=== PATIENT | male | born 1960 | race Caucasian/White ===

== ENCOUNTER 2017-11-04 20:16 | Inpatient (IN) | payer MEDICARE, MEDICAID ==
[2017-11-04] MEDS ORDERED: Sodium Chloride 0.9% 1,000 ML IV STA (20:32)
[2017-11-04 21:34] LABS: BASO # 0.1 K/uL (0.0-0.2); EOS # 0.3 K/uL (0.0-0.7); EOS % 4.3 % (0.0-4.0); HEMOGLOBIN 6.7 g/dL (12.0-18.0); LYMPH # 1.3 K/uL (1.0-4.3); LYMPH % 19.1 % (20.0-40.0); MEAN CELL VOLUME 94.6 fl (80.0-94.0); MEAN CORPUSCULAR HEMOGLOBIN 31.1 pg (27.0-31.0); MEAN CORPUSCULAR HGB CONC 32.9 g/dL (33.0-37.0); MEAN PLATELET VOLUME 7.9 fl (7.2-11.7); MONO # 0.5 K/uL (0.0-0.8); MONO % 6.4 % (0.0-10.0); NEUT # 4.9 K/uL (1.8-7.0); NEUT % 69.2 % (50.0-75.0); NRBC % 0.2 % (0.0-0.0); RBC 2.16 Mil/uL (4.40-5.90); RED CELL DISTRIBUTION WIDTH 15.5 % (11.5-14.5); WHITE BLOOD COUNT 7.1 K/uL (4.8-10.8)
--- NOTE | 2017-11-04 21:46 | ED PDOC ---
HPI: General Adult Time Seen by Provider: 11/04/17 20:22 Chief Complaint (Nursing): Abnormal Labs Chief Complaint (Provider): Abnormal Labs History Per: EMS History/Exam Limitations: clinical condition Onset/Duration Of Symptoms: Mins (prior to arrival) Additional Complaint(s): 56 year old male with previous medical history of seizures, CHF, hypertension, AFib and schizophrenia, who presents to the emergency department via EMS from detention for an evaluation of low hemoglobin count seen on labs done prior to arrival. Patient is a poor historian due to multiple clinical condition but denied any shortness of breath, chest pain or dizziness. PMD: Dami Hanks MD Past Medical History Reviewed: Historical Data, Nursing Documentation, Vital Signs Vital Signs: Last Vital Signs Temp 97.9 F 11/04/17 20:28 Pulse 88 11/04/17 20:28 Resp 16 11/04/17 20:28 BP 113/76 11/04/17 20:28 Pulse Ox 99 11/04/17 22:31 - Medical History PMH: Anxiety, CHF, HTN, Chronic Kidney Disease, Schizophrenia, Seizures Denies: Diabetes, Hepatitis, HIV, Sexually Transmitted Disease - Family History Family History: States: Unknown Family Hx - Social History Current smoker - smoking cessation education provided: No Alcohol: None Drugs: Denies - Immunization History Hx Tetanus Toxoid Vaccination: No Hx Influenza Vaccination: Yes (07/25/2014) Hx Pneumococcal Vaccination: No - Home Medications Home Medications: Ambulatory Orders Medication Instructions Recorded ARIPiprazole [Abilify] 2 mg PO DAILY 06/25/15 LORazepam [Ativan] 0.5 mg PO DAILY 06/25/15 Latanoprost 0.005% Opht [XALATAN 1 drp BOTHEYES HS 06/25/15 2.5 Ml] Levetiracetam 1,000 mg PO HS 06/25/15 Spironolactone [Aldactone] 0.5 tab PO DAILY 06/25/15 Topiramate [Topamax] 3 tab PO BID 06/25/15 Acetaminophen [Non-Aspirin Pain 650 mg PO Q4 PRN 11/04/17 Relief] Acetaminophen [Tylenol (Renal)] 650 mg PO Q4 PRN 11/04/17 Digoxin [Lanoxin] 0.25 mg PO DAILY 11/04/17 Ferrous Sulfate [Feosol] 325 mg PO DAILY 11/04/17 Finasteride [Proscar] 5 mg PO DAILY 11/04/17 Furosemide [Lasix] 20 mg PO DAILY 11/04/17 Levetiracetam [Keppra] 750 mg PO DAILY 11/04/17 Lisinopril [Zestril] 5 mg PO DAILY 11/04/17 OXcarbazepine [Trileptal] 2 tab PO BID 11/04/17 Tamsulosin [Flomax] 2 cap PO DAILY 11/04/17 - Allergies Allergies/Adverse Reactions: Allergies Allergy/AdvReac Type Severity Reaction Status Date / Time No Known Allergies Allergy Verified 11/04/17 20:28 Review of Systems Review Of Systems: ROS cannot be obtained secondary to pt's inabilty to answer questions. (clinical condition) Cardiovascular: Negative for: Chest Pain Respiratory: Negative for: Shortness of Breath Neurological: Negative for: Dizziness Physical Exam - Reviewed Nursing Documentation Reviewed: Yes Vital Signs Reviewed: Yes - Physical Exam Appears: Positive for: No Acute Distress Head Exam: Positive for: ATRAUMATIC, NORMAL INSPECTION, NORMOCEPHALIC Skin: Positive for: Pallor. Negative for: Normal Color Cardiovascular/Chest: Positive for: Regular Rate, Rhythm, Chest Non Tender Respiratory: Positive for: Normal Breath Sounds. Negative for: Decreased Breath Sounds, Wheezing, Respiratory Distress Gastrointestinal/Abdominal: Positive for: Normal Exam, Soft. Negative for: Tenderness Neurologic/Psych: Positive for: Alert, Mood/Affect (flat), Other (patient noted wearing a helmet for seizure precaution). Negative for: Oriented - Laboratory Results Result Diagrams: 11/04/17 21:17 11/04/17 21:17 - ECG O2 Sat by Pulse Oximetry: 99 (RA) Pulse Ox Interpretation: Normal - Critical Care Total Time (In Min): 30 Medical Decision Making Medical Decision Making: Initial Impression: Low hemoglobin count Initial Plan: * ABO/RH type * CMP * Digoxin * LDH * TSH * Troponin I * CBC * PTT * PT * Levetiracetam * NS 1,000ml IV per 1,000mls/hr Time: 2205 --Labs: consistent with reported anemia; hemoglobin count: 6.7. --Crossmatch ordered for 2units. --Discussed case with Ileana Edouard, nurse practitioner for Dr. Hanks. Will admit patient. --Consent obtained from sister, Petra Rush. Witnessed by RN Dunia Quinteros. Clinical Impression: Anemia Scribe Attestation: Documented by Ileana Paula, acting as a scribe for Jayro Geuvara MD. Provider Scribe Attestation: All medical record entries made by the Scribe were at my direction and personally dictated by me. I have reviewed the chart and agree that the record accurately reflects my personal performance of the history, physical exam, medical decision making, and the department course for this patient. I have also personally directed, reviewed, and agree with the discharge instructions and disposition. Disposition - Clinical Impression Clinical Impression: Anemia - Patient ED Disposition Is Patient to be Admitted: Yes Discussed With DrRakel: Ileana Edouard Doctor Will See Patient In The: Hospital Counseled Patient/Family Regarding: Studies Performed, Diagnosis - Disposition Disposition Time: 22:05 Condition: FAIR
[2017-11-04 21:48] LABS: ALBUMIN 2.7 g/dL (3.5-5.0); ALT/SGPT 35 U/L (21-72); AST/SGOT 31 U/L (17-59); BLOOD UREA NITROGEN 26 mg/dl (9-20); CALCIUM 8.1 mg/dL (8.4-10.2); GFR AFRICAN-AMERICAN 36; GFR NON-AFRICAN AMERICAN 29
[2017-11-04 21:56] LABS: INR 1.2 (0.9-1.2); PARTIAL THROMBOPLASTIN TIME 31.6 Seconds (25.6-37.1); PROTHROMBIN TIME 12.9 Seconds (9.8-13.1)
[2017-11-04 22:13] LABS: ALB/GLOB RATIO 0.6 (1.0-2.1)
[2017-11-05 05:03] VITALS: RESP 20
[2017-11-05] MEDS ORDERED: TOPIRAMATE PO SCH (09:00)
[2017-11-05] MEDS ORDERED: Digoxin 250 mcg (0.25 mg) Tab PO SCH (09:00)
[2017-11-05] MEDS ORDERED: OXCARBAZEPINE PO SCH (09:00)
[2017-11-05 10:25] VITALS: PULSE 80
[2017-11-05 11:47] LABS: HEMOGLOBIN 8.4 g/dL (12.0-18.0); MEAN CELL VOLUME 91.9 fl (80.0-94.0); MEAN CORPUSCULAR HEMOGLOBIN 30.7 pg (27.0-31.0); MEAN CORPUSCULAR HGB CONC 33.4 g/dL (33.0-37.0); RBC 2.73 Mil/uL (4.40-5.90); RED CELL DISTRIBUTION WIDTH 15.4 % (11.5-14.5); WHITE BLOOD COUNT 7.9 K/uL (4.8-10.8)
[2017-11-05 12:18] LABS: ALBUMIN 2.8 g/dL (3.5-5.0); CALCIUM 8.2 mg/dL (8.4-10.2)
[2017-11-05 12:53] LABS: ALB/GLOB RATIO 0.6 (1.0-2.1)
--- NOTE | 2017-11-05 14:37 | CP.PCM.PCO ---
Assessment/Plan - Assessment/Plan Assessment (Free Text): Pt stable, denies cp, sob, f/c/n/v. Pt was transfused 2 unite PRBC. Hgb up to 8.4. Pt has hx of CKD and chronic anemia per Ileana, G[employer] HAND for Dr. Hanks who sees pt on the outside. Pt had echo done, per FILIPPO Tejeda, she will follow up results and see pt in [place]. Pt stable to be transferred back to [place]. Pt to resume same home meds and to take Iron 325mg PO bid.
--- NOTE | 2017-11-05 15:44 | CARD ---
APPROVED REPORT EXAM: Two-dimensional and M-mode echocardiogram with Doppler and color Doppler. Other Information Quality : PoorRhythm : Technically limited study due to body habitus. INDICATION Congestive Heart Failure 2D DIMENSIONS IVSd0.86 (0.7-1.1cm)LVDd4.70 (3.9-5.9cm) PWd1.26 (0.7-1.1cm)IVSs1.25 (0.8-1.2cm) LVDs3.88 (2.5-4.0cm)FS (%) 17.4 % PWs0.90 (0.8-1.2cm)LVEF (%)55.0 (>50%) M-Mode DIMENSIONS Left Atrium (MM)2.83 (2.5-4.0cm)Aortic Root2.71 (2.2-3.7cm) Aortic Cusp Exc.1.59 (1.5-2.0cm) Mitral Valve MV E Fzxorfuz85.0cm/sMV A Zjclsuxa08.4cm/sE/A ratio1.3 TDI Lateral E' Peak V8.88cm/sE/Lateral E'6.0E/Medial E'0.0 LEFT VENTRICLE The left ventricle is normal size. There is borderline to mild concentric left ventricular hypertrophy. The left ventricular function is normal. The left ventricular ejection fraction is within the normal range. There is normal LV segmental wall motion. Transmitral Doppler flow pattern is Grade I-abnormal relaxation pattern. RIGHT VENTRICLE The right ventricle is normal size. The right ventricle is borderline hypertrophied. The right ventricular systolic function is normal. ATRIA The left atrium size is normal. The right atrium is mildly dilated. AORTIC VALVE The aortic valve is not well visualized. AI not evaluated not evaluated MITRAL VALVE The mitral valve is not well visualized. There is no evidence of mitral valve prolapse. There is no mitral valve stenosis. MR not evaluated TRICUSPID VALVE The tricuspid valve leaflets are thickened TR not evaluated PULMONIC VALVE not seen PVR not evaluated GREAT VESSELS The aortic root is normal in size. The IVC was not visualized. PERICARDIAL EFFUSION The pericardium appears normal. <Conclusion> S/P limited study The left ventricle is normal size. There is borderline to mild concentric left ventricular hypertrophy. The left ventricular function is normal. The left ventricular ejection fraction is within the normal range. There is normal LV segmental wall motion. Transmitral Doppler flow pattern is Grade I-abnormal relaxation pattern.
[2017-11-05 16:08] VITALS: BP 115/72; PULSE 75; TEMP 98.1; O2SAT 100
--- NOTE | 2017-11-05 16:31 | CARD ---
APPROVED REPORT EKG Measurement Heart [id number] CT [id number] <Conclusion> Normal sinus rhythm Normal ECG
--- NOTE | 2017-11-05 18:10 | CP.PCM.HP ---
Past Patient History - Infectious Disease Hx of Infectious Diseases: None - Past Medical History & Family History Past Medical History?: Yes - Past Social History Smoking Status: Never Smoked - CARDIAC Hx Cardiac Disorders: Yes - PULMONARY Hx Tuberculosis: No - NEUROLOGICAL Hx Neurological Disorder: Yes - HEENT Hx Glaucoma: Yes - RENAL Hx Chronic Kidney Disease: Yes - HEMATOLOGICAL/ONCOLOGICAL Hx Human Immunodeficiency Virus (HIV): No - MUSCULOSKELETAL/RHEUMATOLOGICAL Hx Falls: No - GENITOURINARY/GYNECOLOGICAL Hx Sexually Transmitted Disorders: No - PSYCHIATRIC Hx Anxiety: Yes Hx Schizophrenia: Yes Hx Substance Use: No - ANESTHESIA Hx Anesthesia: No Meds Home Medications: Home Medication List Medication Instructions Recorded Confirmed Type Ferrous Sulfate [Feosol] 325 mg PO BID #60 11/05/17 11/04/17 Rx Allergies/Adverse Reactions: Allergies Allergy/AdvReac Type Severity Reaction Status Date / Time No Known Allergies Allergy Verified 11/04/17 20:28 Results - Vital Signs Recent Vital Signs: Last Vital Signs Temp 98.1 F 11/05/17 16:08 Pulse 75 11/05/17 16:08 Resp 20 11/05/17 16:08 BP 115/72 11/05/17 16:08 Pulse Ox 100 11/05/17 16:08 - Labs Result Diagrams: 11/05/17 11:42 11/05/17 11:42 Labs: Laboratory Results - last 24 hr 11/04/17 11/04/17 11/04/17 21:17 21:17 21:17 WBC 7.1 RBC 2.16 L Hgb 6.7 L Hct 20.4 L MCV 94.6 H MCH 31.1 H MCHC 32.9 L RDW 15.5 H Plt Count 233 MPV 7.9 Neut % (Auto) 69.2 Lymph % (Auto) 19.1 L Bowie % (Auto) 6.4 Eos % (Auto) 4.3 H Baso % (Auto) 1.0 Neut # 4.9 Lymph # 1.3 Bowie # 0.5 Eos # 0.3 Baso # 0.1 PT 12.9 INR 1.2 APTT 31.6 Sodium 143 Potassium 4.6 Chloride 115 H Carbon Dioxide 17 L Anion Gap 16 BUN 26 H Creatinine 2.3 H Est GFR ( Amer) 36 Est GFR (Non-Af Amer) 29 Random Glucose 102 Calcium 8.1 L Total Bilirubin 0.3 AST 31 ALT 35 Alkaline Phosphatase 100 Lactate Dehydrogenase 406 Troponin I < 0.0120 Total Protein 7.2 Albumin 2.7 L Globulin 4.5 H Albumin/Globulin Ratio 0.6 L TSH 3rd Generation 4.76 H Digoxin Blood Type Antibody Screen Crossmatch BBK History Checked 11/04/17 11/04/17 11/04/17 21:17 21:17 22:00 WBC RBC Hgb Hct MCV MCH MCHC RDW Plt Count MPV Neut % (Auto) Lymph % (Auto) Bowie % (Auto) Eos % (Auto) Baso % (Auto) Neut # Lymph # Bowie # Eos # Baso # PT INR APTT Sodium Potassium Chloride Carbon Dioxide Anion Gap BUN Creatinine Est GFR ( Amer) Est GFR (Non-Af Amer) Random Glucose Calcium Total Bilirubin AST ALT Alkaline Phosphatase Lactate Dehydrogenase Troponin I Total Protein Albumin Globulin Albumin/Globulin Ratio TSH 3rd Generation Digoxin 2.2 H Blood Type O POSITIVE O POSITIVE Antibody Screen Negative Crossmatch See Detail BBK History Checked No verified bt Patient has bt 11/05/17 11/05/17 11:42 11:42 WBC 7.9 RBC 2.73 L Hgb 8.4 L Hct 25.1 L MCV 91.9 D MCH 30.7 MCHC 33.4 RDW 15.4 H Plt Count 230 MPV Neut % (Auto) Lymph % (Auto) Bowie % (Auto) Eos % (Auto) Baso % (Auto) Neut # Lymph # Bowie # Eos # Baso # PT INR APTT Sodium 143 Potassium 4.0 Chloride 115 H Carbon Dioxide 18 L Anion Gap 14 BUN 24 H Creatinine 2.3 H Est GFR ( Amer) 36 Est GFR (Non-Af Amer) 29 Random Glucose 99 Calcium 8.2 L Total Bilirubin 0.6 AST 27 ALT 35 Alkaline Phosphatase 106 Lactate Dehydrogenase Troponin I Total Protein 7.3 Albumin 2.8 L Globulin 4.6 H Albumin/Globulin Ratio 0.6 L TSH 3rd Generation Digoxin Blood Type Antibody Screen Crossmatch BBK History Checked
[2017-11-05] MEDS ORDERED: Latanoprost 0.005% Opht SOUTION OS SCH (22:00)
--- NOTE | 2017-11-06 10:25 | PQF GENQUE ---
This form is a permanent part of the medical record DR. PIPPA HOFFMAN: (1) PLEASE CONFIRM PRINCIPAL DIAGNOSIS. H&P IN DRAFT. (2) COMMUNICATION NOTE: STATES HISTORY OF CKD AND CHRONIC ANEMIA. COULD THE CAUSE OF PATIENT'S ANEMIA BE FROM HIS CKD? (3) CLARIFY THE TYPE OF CHF. Clarification of your documentation is requested to better reflect the severity of illness and intensity of treatment of your patient. Indicators present [] Specify: [] [] Specify: [] [] Specify: [] [] Specify: [] Location in the medical record that reflects the above clinical findings: [] Treatment Provided: [] PHYSICIAN'S RESPONSE Based on your medical judgment of the clinical indicators outlined above please clarify the following: [] Practitioner response [] If unable to determine, please check the box, sign and date. Present On Admission (POA) Indicator: [] Present at the time of admission [] Not present at the time of admission [] Clinically Undetermined In responding to this query, please exercise your independent professional judgment. The fact that a question is asked does not imply that any particular answer is desired or expected. Thank you for your clarification on this documentation. 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
[2017-11-08 13:43] LABS: LEVETIRACETAM 20.4 mcg/mL
== END 2017-11-05 20:40 | DRG 292 ==
LOC: H.ER 20:16 → H.ERHOLD 21:46 → H.MEDSURG1 23:20
PROVIDERS: ADMIT Internal Medicine; ATTEND Internal Medicine
PROC: 30233N1 Transfusion of Nonautologous Red Blood Cells into Peripheral Vein, Percutaneous Approach (ICD-10-PCS; principal; 2017-11-05)
DX: I13.0 Hypertensive heart and chronic kidney disease with heart failure and stage 1 through stage 4 chronic kidney disease, or unspecified chronic kidney disease (principal); I50.30 Unspecified diastolic (congestive) heart failure; F20.9 Schizophrenia, unspecified; R56.9 Unspecified convulsions; D63.1 Anemia in chronic kidney disease; N18.9 Chronic kidney disease, unspecified; H40.9 Unspecified glaucoma; I48.91 Unspecified atrial fibrillation; Z79.899 Other long term (current) drug therapy; F41.9 Anxiety disorder, unspecified